=== PATIENT | male | born 1985 | race Caucasian/White ===

== ENCOUNTER 2021-02-23 05:36 | Day surgery (SDC) | payer MEDICAID ==
[2021-02-17 10:51] LABS: BASOPHILS % (AUTO) 0.6 % (0-1); EOSINOPHILS # (AUTO) 0.1 X10'3 (0-0.9); EOSINOPHILS % (AUTO) 1.6 % (0-6); LYMPHOCYTES # (AUTO) 1.1 X10'3 (1.1-4.8); LYMPHOCYTES % (AUTO) 17.5 % (21-51); MEAN CORPUSCULAR HEMOGLOBIN 32.7 PG (27.0-31.0); MEAN CORPUSCULAR HGB CONC 34.1 g/dL (33.0-36.5); MEAN CORPUSCULAR VOLUME 96.1 FL (78-98); MEAN PLATELET VOLUME 7.7 FL (7.4-10.4); MONOCYTES # (AUTO) 0.4 X10'3 (0-0.9); MONOCYTES % (AUTO) 5.9 % (2-12); NEUTROPHILS # (AUTO) 4.7 X10'3 (1.8-7.7); NEUTROPHILS % (AUTO) 74.4 % (42-75); PRE OP HEMATOCRIT 51.5 % (42.0-52.0); PRE OP HEMOGLOBIN 17.5 g/dL (14.0-17.9); PRE OP PLATELET COUNT 238 X10'3 (140-440); RED BLOOD COUNT 5.36 X10'6 (4.70-6.10); RED CELL DISTRIBUTION WIDTH 13.4 % (11.5-14.5)
[2021-02-17 10:53] LABS: ALBUMIN 4.6 G/DL (3.4-5.0); ALBUMIN/GLOBULIN RATIO 1.2 (1.1-1.5); ALKALINE PHOSPHATASE 101 IU/L (46-116); BLOOD UREA NITROGEN 12 MG/DL (7-18); BUN/CREATININE RATIO 12.4 (5.4-32.0); CALCIUM 9.5 MG/DL (8.5-10.1); CHLORIDE 106 MMOL/L (99-107); CREATININE 0.97 MG/DL (0.60-1.10); PRE OP ALT 21 U/L (30-65); PRE OP ANION GAP 8 (8-16); PRE OP AST 16 U/L (10-37); PRE OP BILIRUB, TOTAL 0.6 MG/DL (0.0-1.0); PRE OP GLUCOSE 99 MG/DL (70-104); PRE OP POTASSIUM 4.5 MMOL/L (3.4-5.1); PRE OP SODIUM 141 MMOL/L (135-145); TOTAL CARBON DIOXIDE 26.9 MMOL/L (24-32); TOTAL PROTEIN 8.4 G/DL (6.4-8.2); eGFR 89 ML/MIN
[2021-02-23] VITALS (10 sets, daily range): BP systolic 127–139; BP diastolic 83–93
[~2021-02-23] VITALS: Ht 177.8 cm; Wt 61.4 kg
[~2021-02-23 05:36] MED LIST: NO HOME MEDS; famotidine 20mg tablet PO ONE; ringers solution, lacted 1,000 ML IV SCH
[2021-02-23] MEDS ORDERED: BUPIVAcaine 0.5% W/EPI /PF 30ml vial ONE (07:09)
[2021-02-23] MEDS ORDERED: fentaNYL/PF 50MCG/1 ML 2ML syringe ONE (07:35)
[2021-02-23] MEDS ORDERED: midazolam 1 mg/ML 2ml injection ONE (07:36)
[2021-02-23] MEDS ORDERED: methylene blue (5mg/ml) 50mg/10ml ampul IV ONE (07:58)
[2021-02-23] MEDS ORDERED: morphine 2 MG/ML inj. syringe IV PRN (08:10)
[2021-02-23] MEDS ORDERED: morphine 4 MG/ML inj SYRINge IV PRN (08:10)
[2021-02-23] MEDS ORDERED: proCHLORperazine 10 MG/2 ml inj IV PRN (08:10)
[2021-02-23] MEDS ORDERED: ondansetron/PF 4mg/2ml inj IV PRN (08:10)
[2021-02-23] MEDS ORDERED: ringers solution, lacted 1,000 ML IV SCH (08:10)
[2021-02-23] MEDS ORDERED: meperidine/PF 25mg/ml syringe IV PRN ×3 (08:10)
[2021-02-23] MEDS ORDERED: rocuronium 10mg/ml inj IV ONE (08:18)
[2021-02-23] MEDS ORDERED: propofol inj 20 ML IV ONE (08:18)
[2021-02-23] MEDS ORDERED: neostigmine methylsulfate 1 MG/ML 10ml vial ONE (08:19)
[2021-02-23] MEDS ORDERED: ondansetron/PF 4mg/2ml inj ONE (08:19)
[2021-02-23] MEDS ORDERED: dexamethasone sod phosphate 4mg/ml inj. ONE (08:19)
[2021-02-23] MEDS ORDERED: glycopyrrolate 0.2mg/ml inj ONE (08:20)
--- NOTE | 2021-02-23 08:43 | NUR ---
Received from OR via , accompanied by Anesthesiologist DR DICKINSON and report given by Anesthesiolgist. PT PRESENTS WITH 20G RIGHT AC. VSS. Addendum: 02/23/21 at 0847 by Heather Ybarra RN, RN Amended: Links added.
--- NOTE | 2021-02-23 09:37 | NUR ---
DC INSTRUCTIONS REVIEWED WITH PT, PT VERBALIZED UNDERSTANDING. PT GIVEN NEW RX. IV DC'D. PT TAKEN TO PRIVATE VEHICLE VIA WHEELCHAIR. Addendum: 02/23/21 at 0978 by Heather Ybarra RN, RN Amended: Links added.
== END 2021-02-23 09:37 | disposition home or self-care (01) ==
LOC: PAS 05:36
PROVIDERS: ATTEND Colon & Rectal Surgery
DX: K60.5 Anorectal fistula (principal); K61.0 Anal abscess; Z20.822 Contact with and (suspected) exposure to COVID-19; Z79.899 Other long term (current) drug therapy; Z87.891 Personal history of nicotine dependence
CPT/HCPCS: 36415; 46020; 46050; 80053; 82948; 85025; J1100; J2250; J2405; J2704; J2710; J3010; Q9968; U0003; U0005; Z7506; Z7508; Z7512; A4215; A4402; A4618; A6253; A6449; A7000; J3490; J7120

== ENCOUNTER 2021-06-15 09:36 | Day surgery (SDC) | payer MEDICAID ==
[2021-06-09 16:05] LABS: BASOPHILS % (AUTO) 0.4 % (0-1); EOSINOPHILS # (AUTO) 0.2 X10'3 (0-0.9); EOSINOPHILS % (AUTO) 1.8 % (0-6); LYMPHOCYTES # (AUTO) 1.2 X10'3 (1.1-4.8); LYMPHOCYTES % (AUTO) 12.2 % (21-51); MEAN CORPUSCULAR HEMOGLOBIN 32.5 PG (27.0-31.0); MEAN CORPUSCULAR HGB CONC 33.4 g/dL (33.0-36.5); MEAN CORPUSCULAR VOLUME 97.5 FL (78-98); MEAN PLATELET VOLUME 7.5 FL (7.4-10.4); MONOCYTES # (AUTO) 0.7 X10'3 (0-0.9); NEUTROPHILS # (AUTO) 7.4 X10'3 (1.8-7.7); NEUTROPHILS % (AUTO) 78.6 % (42-75); PRE OP HEMATOCRIT 46.9 % (42.0-52.0); PRE OP HEMOGLOBIN 15.6 g/dL (14.0-17.9); PRE OP PLATELET COUNT 227 X10'3 (140-440); RED BLOOD COUNT 4.81 X10'6 (4.70-6.10); RED CELL DISTRIBUTION WIDTH 13.4 % (11.5-14.5)
[2021-06-09 16:25] LABS: ALBUMIN 4.1 G/DL (3.4-5.0); ALBUMIN/GLOBULIN RATIO 1.2 (1.1-1.5); ALKALINE PHOSPHATASE 126 IU/L (46-116); BLOOD UREA NITROGEN 14 MG/DL (7-18); BUN/CREATININE RATIO 16.7 (5.4-32.0); CHLORIDE 106 MMOL/L (99-107); CREATININE 0.84 MG/DL (0.60-1.10); PRE OP ALT 21 U/L (30-65); PRE OP ANION GAP 6 (8-16); PRE OP AST 16 U/L (10-37); PRE OP BILIRUB, TOTAL 0.7 MG/DL (0.0-1.0); PRE OP GLUCOSE 92 MG/DL (70-104); PRE OP SODIUM 140 MMOL/L (135-145); TOTAL CARBON DIOXIDE 27.7 MMOL/L (24-32); TOTAL PROTEIN 7.5 G/DL (6.4-8.2); eGFR > 90 ML/MIN
[~2021-06-15] VITALS: Ht 177.8 cm; Wt 61.2 kg
[2021-06-15] VITALS (9 sets, daily range): BP systolic 128–153; BP diastolic 71–99
[~2021-06-15 09:36] MED LIST changes: +LIDOcaine 1% W/epiNEPHrine 1:100,000 20ml vial ONE; +methylene blue (5mg/ml) 50mg/10ml ampul IV ONE
[2021-06-15] MEDS ORDERED: BUPIVAcaine 0.5% inj/PF 30 ML ONE (09:37)
[2021-06-15] MEDS ORDERED: ondansetron/PF 4mg/2ml inj IV PRN (11:00)
[2021-06-15] MEDS ORDERED: meperidine/PF 25mg/ml syringe IV PRN ×3 (11:00)
[2021-06-15] MEDS ORDERED: proCHLORperazine 10 MG/2 ml inj IV PRN (11:00)
[2021-06-15] MEDS ORDERED: ringers solution, lacted 1,000 ML IV SCH (11:00)
[2021-06-15] MEDS ORDERED: morphine 2 MG/ML inj. syringe IV PRN (11:00)
[2021-06-15] MEDS ORDERED: morphine 4 MG/ML inj SYRINge IV PRN (11:00)
[2021-06-15] MEDS ORDERED: sevoflurane 250ml liquid IH ONE (11:01)
[2021-06-15] MEDS ORDERED: midazolam 1 mg/ML 2ml injection ONE (11:02)
[2021-06-15] MEDS ORDERED: fentaNYL/PF 50MCG/1 ML 2ML syringe ONE (11:02)
[2021-06-15] MEDS ORDERED: rocuronium 10mg/ml inj IV ONE (11:02)
[2021-06-15] MEDS ORDERED: propofol inj 20 ML IV ONE (11:02)
[2021-06-15] MEDS ORDERED: neostigmine methylsulfate 1 MG/ML 10ml vial ONE (11:56)
[2021-06-15] MEDS ORDERED: glycopyrrolate 0.2mg/ml inj ONE (11:56)
--- NOTE | 2021-06-15 12:10 | NUR ---
Received from OR via [facility] , accompanied by Anesthesiologist DR. SHAIKH and report given by Anesthesiolgist. PT PRESENTS WITH 20G LEFT HAND, LR RINNING 100MLS/HR, VSS. Addendum: 06/15/21 at 1218 by Heather Ybarra RN RN Amended: Links added.
--- NOTE | 2021-06-15 13:30 | NUR ---
I HAVE REVIEWED D/C INSTRUCTIONS WITH PATIENT AND THEY HAVE VERBALIZED UNDERSTANDING OF INSTRUCTIONS. PATIENT D/C HOME WITH ALL BELONGINGS AND FAMILY GAVE TRANSPORT Addendum: 06/15/21 at 1334 by Heather Ybarra RN, RN Amended: Links added.
== END 2021-06-15 13:30 | disposition home or self-care (01) ==
LOC: PAS 09:36
PROVIDERS: ATTEND Colon & Rectal Surgery
DX: K60.3 Anal fistula (principal); Z86.16 Personal history of COVID-19; Z79.899 Other long term (current) drug therapy; Z98.890 Other specified postprocedural states; Z20.822 Contact with and (suspected) exposure to COVID-19
CPT/HCPCS: 36415; 45990; 80053; 82948; 85025; J2175; J2250; J2704; J2710; J3010; J3490; J7030; J7120; Q9968; S0020; U0003; U0005; Z7506; Z7508; Z7512; A4215; A4340; A4402; A4618; A6449; A7000

== ENCOUNTER 2021-11-09 05:29 | Day surgery (SDC) | payer MEDICAID ==
[2021-11-05 10:55] LABS: BASOPHILS % (AUTO) 0.8 % (0-1); EOSINOPHILS # (AUTO) 0.1 X10'3 (0-0.9); EOSINOPHILS % (AUTO) 3.1 % (0-6); LYMPHOCYTES # (AUTO) 1.3 X10'3 (1.1-4.8); LYMPHOCYTES % (AUTO) 27.2 % (21-51); MEAN CORPUSCULAR HEMOGLOBIN 32.3 PG (27.0-31.0); MEAN CORPUSCULAR HGB CONC 34.3 g/dL (33.0-36.5); MEAN CORPUSCULAR VOLUME 94.2 FL (78-98); MEAN PLATELET VOLUME 7.3 FL (7.4-10.4); MONOCYTES # (AUTO) 0.4 X10'3 (0-0.9); MONOCYTES % (AUTO) 7.8 % (2-12); NEUTROPHILS # (AUTO) 2.8 X10'3 (1.8-7.7); NEUTROPHILS % (AUTO) 61.1 % (42-75); PRE OP HEMATOCRIT 48.8 % (42.0-52.0); PRE OP HEMOGLOBIN 16.7 g/dL (14.0-17.9); PRE OP PLATELET COUNT 223 X10'3 (140-440); RED BLOOD COUNT 5.18 X10'6 (4.70-6.10); RED CELL DISTRIBUTION WIDTH 13.3 % (11.5-14.5)
[2021-11-05 11:07] LABS: ALBUMIN 4.1 G/DL (3.4-5.0); ALBUMIN/GLOBULIN RATIO 1.2 (1.1-1.5); ALKALINE PHOSPHATASE 112 IU/L (46-116); BLOOD UREA NITROGEN 10 MG/DL (7-18); BUN/CREATININE RATIO 10.4 (5.4-32.0); CALCIUM 9.1 MG/DL (8.5-10.1); CHLORIDE 105 MMOL/L (99-107); CREATININE 0.96 MG/DL (0.60-1.10); PRE OP ALT 30 U/L (30-65); PRE OP ANION GAP 11 (8-16); PRE OP AST 19 U/L (10-37); PRE OP BILIRUB, TOTAL 0.7 MG/DL (0.0-1.0); PRE OP GLUCOSE 93 MG/DL (70-104); PRE OP POTASSIUM 4.3 MMOL/L (3.4-5.1); PRE OP SODIUM 142 MMOL/L (135-145); TOTAL CARBON DIOXIDE 25.6 MMOL/L (24-32); TOTAL PROTEIN 7.5 G/DL (6.4-8.2); eGFR 90 ML/MIN
[2021-11-09] VITALS (8 sets, daily range): BP systolic 120–136; BP diastolic 70–87
[~2021-11-09] VITALS: Ht 177.8 cm; Wt 63.5 kg
[~2021-11-09 05:29] MED LIST changes: -LIDOcaine 1% W/epiNEPHrine 1:100,000 20ml vial ONE; -famotidine 20mg tablet PO ONE; -methylene blue (5mg/ml) 50mg/10ml ampul IV ONE
[2021-11-09] MEDS ORDERED: famotidine 20mg tablet PO ONE (05:30)
[2021-11-09] MEDS ORDERED: BUPIVAcaine/PF 2.5mg/ml (0.25%) 10ml vial ONE (06:42)
[2021-11-09] MEDS ORDERED: methylene blue (5mg/ml) 50mg/10ml ampul IV ONE (06:42)
[2021-11-09] MEDS ORDERED: LIDOcaine 1% W/epiNEPHrine 1:100,000 20ml vial ONE (06:42)
[2021-11-09] MEDS ORDERED: ondansetron/PF 4mg/2ml inj IV PRN (07:10)
[2021-11-09] MEDS ORDERED: hydrALAZINE 20mg/ml inj. IV PRN (07:10)
[2021-11-09] MEDS ORDERED: labetalol 20mg/4ml (5mg/ml) syringe IV PRN (07:10)
[2021-11-09] MEDS ORDERED: fentaNYL/PF 50MCG/1 ML 2ML syringe IV PRN ×2 (07:10)
[2021-11-09] MEDS ORDERED: morphine 2 MG/ML inj. syringe IV PRN (07:10)
[2021-11-09] MEDS ORDERED: morphine 4 MG/ML inj SYRINge IV PRN (07:10)
[2021-11-09] MEDS ORDERED: ringers solution, lacted 1,000 ML IV SCH (07:10)
[2021-11-09] MEDS ORDERED: fentaNYL/PF 50MCG/1 ML 2ML syringe ONE (07:15)
[2021-11-09] MEDS ORDERED: midazolam 1 mg/ML 2ml injection ONE (07:15)
[2021-11-09] MEDS ORDERED: neostigmine methylsulfate 1 MG/ML 10ml vial ONE (07:16)
[2021-11-09] MEDS ORDERED: glycopyrrolate 0.2mg/ml inj ONE (07:16)
[2021-11-09] MEDS ORDERED: LIDOcaine 1%/PF 5ML 10 MG/ML VIAL ONE (07:16)
[2021-11-09] MEDS ORDERED: ondansetron/PF 4mg/2ml inj ONE (07:17)
[2021-11-09] MEDS ORDERED: propofol inj 20 ML IV ONE (07:17)
[2021-11-09] MEDS ORDERED: rocuronium 10mg/ml inj IV ONE (07:17)
[2021-11-09] MEDS ORDERED: dexamethasone sod phosphate 4mg/ml inj. ONE (07:17)
[2021-11-09] MEDS ORDERED: sevoflurane 250ml liquid IH ONE (07:27)
--- NOTE | 2021-11-09 08:26 | NUR ---
Received from OR via [facility], accompanied by Anesthesiologist and report given by MARY ELLEN Anesthesiologist. PATIENT WAKING UP, NO S/S OF PAIN, V/S WNL, SCD ON, 20G TO RUE, PERIANAL DRESSING CLEAN W/ NO S/S OF COMPLICATIONS. Addendum: 11/09/21 at 0839 by Yousif Abad RN Amended: Links added.
--- NOTE | 2021-11-09 09:26 | NUR ---
ALL DISCHARGE CRITERIA HAS BEEN MET. VSS, PAIN AT A TOLERABLE LEVEL, ABLE TO SAFELY AMBULATE AND TRANSFER SELF. IV TAKEN OUT WITHOUT ANY COMPLICATIONS. ALL DISCHARGE INSTRUCTIONS COVERED WITH PATIENT AND ALL QUESTIONS ANSWERED. PATIENT TAKEN OUT VIA WHEELCHAIR TO PERSONAL VEHICLE WHERE FAMILY DROVE PATIENT HOME. Addendum: 11/09/21 at 0930 by Yousif Abad RN Amended: Links added.
== END 2021-11-09 09:26 | disposition home or self-care (01) ==
LOC: PAS 05:29
PROVIDERS: ATTEND Colon & Rectal Surgery
DX: K60.5 Anorectal fistula (principal); Z79.899 Other long term (current) drug therapy; Z98.890 Other specified postprocedural states
CPT/HCPCS: 36415; 45999; 80053; 82948; 85025; J1100; J2250; J2405; J2704; J2710; J3010; J3490; J7030; J7120; Q9968; Z7506; Z7512; A4215; A4402; A4618; A7000